=== PATIENT | female | born 1955 | race Caucasian/White ===

== ENCOUNTER 2016-06-29 10:16 | Outpatient (CLI) | payer MEDICAID ==
[~2016-06-29] VITALS: Ht 152.4 cm; Wt 90.7 kg
[~2016-06-29 10:16] MED LIST: ALPR.5T PO; CPR500T; FURO20TA4; HYDR-757 PO; IBP600T1; LOSA25TA15; MECL-124 PO; MECL25TA56; NITR-65 PO
[2016-06-29] MEDS ORDERED: TRIAMCINOLONE ACET (KENALOG-40) 40 MG/ML 1 ML VIAL ONE (10:17)
[2016-06-29] MEDS ORDERED: BUPIVACAINE 0.25% 30 ML (SENSORCAINE) VIAL ONE (10:17)
[2016-06-29 10:31] VITALS: BP 124/99
[2016-06-29 10:55] VITALS: BP 147/97
--- NOTE | 2016-06-29 12:45 | Pain Medicine-Procedure ---
Procedure Pre-Op/Post-Op Diagnosis Diagnosis: disc disorder with radiculopathy, lumbar Indications for Operation Low back pain Attending Surgeon Jamila Procedure Date of Service: Jun 29, 2016 PROCEDURE: Caudal Epidural Steroid Injection with catheter under Flouroscopic Guidance PROCEDURE NOTE: After obtaining written informed consent patient was taken to the procedure room. Vital signs were monitored through out the procedure. A time out was performed. The patient was placed in the prone position on fluoroscopy table. The lower back above the caudal space was prepped with chloraprep and draped in the usual sterile fashion. The skin over the sacral hiatus was identified under fluoroscopic guidance and infiltrated with 1% lidocaine for local anesthesia via 25 gauge needle. An 17-gauge epimed needle was used to access the epidural space under fluoroscopic guidance and was then advanced into the epidural space under fluoroscopic guidance in the AP view. The epimed catheter was then advanced under flourospopic guidance to the L5-S1 interspace. There was no paresthesia with catheter placement. After negative aspiration 1 cc of the contrast dye was injected through the needle with good spread of the medication in the epidural space at the appropriate levels. Again, after negative aspiration, 80 mg of kenalog with 2 cc of 0.25% marcaine and 2 mL's of preservative free normal saline was injected. There was no evidence of CSF, paresthesia or heme during the procedure. The catheter and needle were withdrawn as a unit and the tip was noted to be intact upon removal. Skin was cleaned and a sterile dressing was applied. Following the procedure the patient's vital signs were stable. The patient was discharged home after a brief period of observation with no new neuologic deficits. Complications None AMADOR PANIAGUA MD Jun 29, 2016 12:45 pm
== END 2016-06-29 10:56 ==
LOC: CARD 10:16
PROVIDERS: ATTEND Pain Medicine Pain Medicine
DX: M51.16 Intervertebral disc disorders with radiculopathy, lumbar region (principal); G89.4 Chronic pain syndrome; M96.1 Postlaminectomy syndrome, not elsewhere classified; Z79.899 Other long term (current) drug therapy
CPT/HCPCS: 62323

== ENCOUNTER → 2017-01-30 | Outpatient (CLI) | payer MEDICAID ==
--- NOTE | 2017-01-30 11:37 | Diagnostic Imaging Report ---
CLINICAL INDICATION: Patient has had several falls in the past couple of months. Patient has low back pain and right leg pain and bilateral leg weakness. Patient has history of surgery on 08/11/2014. EXAM: MRI of the lumbar spine performed without IV contrast. Sequences include sagittal T2, sagittal T1, sagittal T2 fat-sat, coronal T2 localizer, and axial T2. COMPARISON: MRI of the lumbar spine without IV contrast dated 10/12/2015. FINDINGS: Again seen small left renal cyst. Again seen postop changes to the lower lumbar spine with L3-L5 posterior lumbar fusion hardware with bilateral spanning rods and pedicle screws. There are no intervertebral disc spacers. There is laminectomies at the L3 and L4 levels. There is no paraspinal fluid collection seen. Susceptibility hardware artifact significantly obscures adjacent soft tissue on the sagittal T2 fat-sat. The visualized distal thoracic spinal cord, conus medullaris, and cauda equina nerve roots are unremarkable. The conus medullaris tip is seen at the L1-L2 intervertebral level. There are degenerative spurs involving the lumbar spine. The lumbar vertebra show no significant abnormal signal. T12-L1: There is interval development of a small left paracentral disc bulge. There is no significant central spinal canal or neural foramen narrowing. L1-L2: There is mild diffuse disc bulge with slight decreased size of the previously seen subtle posterior disc bulge. There is no significant central spinal canal or neural foramen narrowing. L2-L3: There is bilateral facet arthropathy. There is mild diffuse disc bulge with subtle posterior disc bulge seen. There is no significant central spinal canal narrowing. There is stable mild bilateral neural foramen narrowing. L3-L4: Stable mild diffuse disc bulge and bilateral facet arthropathy. There is no significant central canal narrowing. There is stable mild right neural foramen narrowing and mild to moderate left neural foramen narrowing. L4-L5: Stable grade 1 anterolisthesis of L4 on L5. There is no significant change to the diffuse disc bulge with slight uncovering of the posterior aspect of the disc. Stable mild loss of intervertebral disc height. There is decompression of the thecal sac posteriorly with no significant central canal narrowing. Stable mild right neural foramen narrowing and mild to moderate left neural foramen narrowing. L5-S1: There is stable moderate right facet arthropathy and mild left facet arthropathy. There is no significant central spinal canal or neural foramen narrowing. IMPRESSION: 1: There is stable postop changes to the lower lumbar spine with L3-L5 posterior lumbar fusion hardware and laminectomies. There is no fluid collection or MR evidence of significant abnormality. 2: Stable multilevel lumbar spine degenerative disease, as described above. 3: Stable grade 1 anterolisthesis of L4 on L5. Dictated by: Dictated on workstation # [id number]
== END ==
LOC: RAD 08:31
PROVIDERS: ATTEND Nurse Practitioner Community Health
DX: M54.16 Radiculopathy, lumbar region (principal)
CPT/HCPCS: 72148

== ENCOUNTER → 2017-04-29 | Outpatient (CLI) | payer MEDICAID ==
--- NOTE | 2017-04-29 10:01 | Diagnostic Imaging Report ---
PROCEDURE: CT lumbar spine without contrast. TECHNIQUE: Multiple contiguous axial images were obtained through the lumbar spine without the use of intravenous contrast. Sagittal and coronal reformations were then performed. INDICATION: Back pain. FINDINGS: There is grade 1 spondylolisthesis of L4 over L5. There is posterior fusion hardware with transpedicular screws and connecting rods seen involving L3, L4 and L5 levels bilaterally which appear intact. There is lucency seen around the transpedicular screws at L5 level more prominent on the right side which may relate to loosening. No suggestion of screws displacement or retraction however. The vertebral body heights are preserved. There is suggestion of facet joint osseous fusion on the right side at L3/4 level. The left L3/4 demonstrate no osseous fusion. There is no osseous bridging of the posterior elements of L4 and L5 identified. There is laminectomy change at L3 and L4 levels. There is moderate facet arthropathy at L5/S1 more prominent on the right side. No definite CT evidence of significant spinal canal stenosis. IMPRESSION: 1. Grade 1 spondylolisthesis of L4 over L5. 2. There is lucency around the transpedicular screws in L5 level suggestive of mild loosening without evidence of screws displacement or fracture however. 3. There is osseous fusion involving the right facet joint at L3/4 level. Dictated by: Dictated on workstation # [id number]
== END ==
LOC: RAD 08:53
PROVIDERS: ATTEND Neurological Surgery
DX: M43.16 Spondylolisthesis, lumbar region (principal); Z98.1 Arthrodesis status
CPT/HCPCS: 72131

== ENCOUNTER → 2018-12-31 | Outpatient (CLI) | payer MEDICAID ==
--- NOTE | 2018-12-31 15:28 | Diagnostic Imaging Report ---
PROCEDURE: MRI lumbar spine. TECHNIQUE: Multiplanar, multisequence MRI of the lumbar spine was performed without contrast. INDICATION: Chronic low back pain. Patient has history of prior lumbar spine surgery. COMPARISON: Correlation is made with prior MRI of the lumbar spine from 01/30/2017. FINDINGS: Curvature of the lumbar spine is normal. There is anterolisthesis of L4 on L5. Degree of anterolisthesis has increased slightly since the prior MRI. Patient is status post posterior instrumented fusion with stabilization rods and pedicle screws transfixing the L3-L4 level. L5 pedicle screws have been removed since prior MRI. Patient has undergone anterior lumbar interbody fusion at L4-L5 since prior exam. The vertebral body heights are maintained. No acute compression fracture is seen. There is degenerative disc disease at L4-L5. Conus is unremarkable at the L1 level. T12-L1: There is a mild wide-based left paramidline disc bulge indenting the ventral thecal sac at this level. No resultant central canal or neural foraminal stenosis is identified. L1-L2: There is mild broad-based bulging. Central canal is widely patent. Neural foramina are patent. L2-L3: There is mild broad-based disc/osteophyte complex. Central canal is patent. There is significant right and [id number] left neural foraminal stenosis as well as bilateral lateral recess stenosis. L3-L4: Central canal is widely patent. There is mild left neural foraminal narrowing. Right neural foramen is patent. L4-L5: Central canal is patent. There is significant bilateral neural foraminal stenosis likely owing to spondylolisthesis. L5-S1: Hypertrophic facet changes are noted. Central canal is patent. Neural foramina are widely patent. Paraspinous tissues are unremarkable. IMPRESSION: Postop changes of posterior instrumented fusion at the L3-L4 level as well as anterior lumbar interbody fusion at L4-L5. There is spondylolisthesis of L4 on L5 which has increased since prior MRI from January 2017. Lateral recess and neural foraminal narrowing is seen, described level by level above. No significant central canal stenosis is seen. No acute compression fracture is detected. Dictated by: Dictated on workstation # [id number]
== END ==
LOC: RAD 14:10
PROVIDERS: ATTEND Nurse Practitioner Community Health
DX: M43.16 Spondylolisthesis, lumbar region (principal); M54.16 Radiculopathy, lumbar region; M48.061 Spinal stenosis, lumbar region without neurogenic claudication; M89.38 Hypertrophy of bone, other site; M51.24 Other intervertebral disc displacement, thoracic region; M51.26 Other intervertebral disc displacement, lumbar region
CPT/HCPCS: 72148

== ENCOUNTER → 2019-04-08 | Outpatient (CLI) | payer MEDICAID ==
--- NOTE | 2019-04-08 16:36 | Diagnostic Imaging Report ---
PROCEDURE: CT lumbar spine without contrast. TECHNIQUE: Multiple contiguous axial images were obtained through the lumbar spine without the use of intravenous contrast. Sagittal and coronal reformations were then performed. Auto Exposure Controls were utilized during the CT exam to meet ALARA standards for radiation dose reduction. INDICATION: Back pain and surgery. COMPARISON: Exam compared to 04/29/2017. FINDINGS: Since the prior CT, anterior and interbody fusion at L4-L5 has been performed as well as posterior fusion at the L3 and L4 levels with vertical rods and bi-pedicular screws. There does appear to be at least some incorporation of the endplates with the interbody device at the L5-S1 level, however anterolisthesis of L4 on L5 has increased, now measuring 1 cm, previously 5 mm. No suspicious lucencies adjacent to the hardware. There are L3 and L4 laminectomies performed. Remaining levels are aligned normally. No fluid collection. No paravertebral mass or hemorrhage. The aorta is nonaneurysmal. At the T12-L1, L1-L2, L2-L3, and L3-L4 levels, there is no substantial canal or foraminal stenosis. There is facet fusion at the L3-L4 and L4-L5 levels. At L4-L5, the listhesis largely contributes to the moderate degrees of biforaminal stenosis with no substantial canal narrowing. At L5-S1, no canal, foraminal, or recess stenosis. IMPRESSION: No findings of pseudoarthrosis, however increased grade 1 anterolisthesis of L4 on L5. No substantial canal stenosis, however biforaminal narrowing at the malaligned L4-L5 level is present. Dictated by: Dictated on workstation # [id number]
== END ==
LOC: RAD 11:42
PROVIDERS: ATTEND Neurological Surgery
DX: M43.16 Spondylolisthesis, lumbar region (principal); M48.061 Spinal stenosis, lumbar region without neurogenic claudication; Z91.81 History of falling; Z96.9 Presence of functional implant, unspecified
CPT/HCPCS: 72131

== ENCOUNTER 2020-12-28 06:09 | Outpatient (CLI) | payer MEDICAID ==
[~2020-12-28] VITALS: Ht 152.4 cm; Wt 109.1 kg
[2020-12-28] MEDS ORDERED: CETI10TA17 PO (13:16)
[2020-12-28] MEDS ORDERED: POTA10CA43 PO (13:16)
[2020-12-28] MEDS ORDERED: DICY10CA12 PO (13:16)
[2020-12-28] MEDS ORDERED: IBUP-1780 PO (13:16)
[2020-12-28] MEDS ORDERED: LIDO700A45 TP (13:16)
[2020-12-28] MEDS ORDERED: ESTR42.511 VG (13:16)
[2020-12-28] MEDS ORDERED: FAMO40TA72 PO (13:16)
[2020-12-28] MEDS ORDERED: RPN.25T PO (13:16)
[2020-12-28] MEDS ORDERED: CHOL100048 PO (13:16)
[2020-12-28] MEDS ORDERED: FERR-84 PO (13:16)
[2020-12-28] MEDS ORDERED: CYCL10TA9 PO (13:16)
[2020-12-28] MEDS ORDERED: ALBU1.25 INH (13:16)
[2020-12-28] MEDS ORDERED: CARV6.252 PO (13:16)
[2020-12-28] MEDS ORDERED: FURO-124 PO (13:16)
[2020-12-28] MEDS ORDERED: GABA800T10 PO (13:16)
[2020-12-28] MEDS ORDERED: FLUT9.9S NS (13:16)
[2020-12-28] MEDS ORDERED: DEXL60CA PO (13:16)
[2020-12-28] MEDS ORDERED: DICL20GE TP (13:16)
== END 2020-12-28 16:25 | disposition home or self-care (01) ==
LOC: PREOP 06:09
PROVIDERS: ATTEND Orthopaedic Surgery
DX: Z01.818 Encounter for other preprocedural examination (principal)

== ENCOUNTER 2021-01-04 07:51 | Day surgery (SDC) | payer MEDICAID ==
--- NOTE | 2020-12-27 20:05 | HISTORY AND PHYSICAL ---
DATE OF SERVICE: ADMISSION HISTORY AND PHYSICAL This will be for outpatient surgery on 01/04/2021 for left shoulder arthroscopy with rotator cuff repair. HISTORY OF PRESENT ILLNESS: The patient is a 65-year-old female with progressively worsening left shoulder pain and stiffness. She underwent treatment with therapy without relief. She reports that the pain started in late fall of last year. She reports pain on the top of the shoulder and laterally. She denies neck pain and denies paresthesias. She underwent an MRI, which reveals a near full thickness supraspinatus tear. Due to functional impairment and failure to improve with extensive conservative measures, the patient elected to proceed with surgical intervention. REVIEW OF SYSTEMS: No recent chest pain, shortness of breath or dysuria. PAST MEDICAL HISTORY: Chest pain, allergic rhinitis, anxiety disorder, back pain, hypertension, osteoarthritis, fibromyalgia, irregular heartbeat, COPD, scoliosis. PAST SURGICAL HISTORY: Hysterectomy, detached retina, cholecystectomy, lumbar surgery x3. FAMILY HISTORY: Significant for prostate cancer, kidney cancer. PRIMARY CARE PROVIDER: [facility]. MEDICATIONS: 1. Cyclobenzaprine. 2. Diclofenac. 3. Gabapentin. 4. Ibuprofen. 5. Trospium. 6. Sudogest. 7. Potassium. 8. Montelukast. 9. Iron. 10. Albuterol. 11. Furosemide. 12. Fluconazole. 13. Pepcid. 14. Dicyclomine. 15. Dexilant. 16. Zyrtec. 17. Carvedilol. 18. Nitrostat. 19. Epinephrine. 20. Estradiol. ALLERGIES: METHYLPREDNISOLONE, FLAGYL, DILAUDID, AMITRIPTYLINE, TRAZODONE, TRIAMCINOLONE, CLONIDINE, DULOXETINE and LEVAQUIN. SOCIAL HISTORY: The patient is a former smoker. Denies alcohol use. PHYSICAL EXAMINATION: GENERAL: The patient is well-developed, well-nourished, in no acute distress. HEENT: Normocephalic, atraumatic. Pupils are equal, round and reactive to light. Oropharynx is clear. NECK: Supple, no lymphadenopathy. LUNGS: Clear to auscultation bilaterally. HEART: Regular rate and rhythm. ABDOMEN: Soft, nontender, nondistended. EXTREMITIES: The left shoulder demonstrates no atrophy. She has active forward elevation for 140 degrees, external rotation lacks 20 degrees, internal rotation lacks four interspaces actively, passively is full. She has weakness with abduction and external rotation with positive Neer's and positive Hawkin sign. IMPRESSION: Left shoulder rotator cuff tear. PLAN: Left shoulder arthroscopy, possible biceps tenotomy, open rotator cuff repair. The risks, benefits, options, ramifications and recovery were discussed at length with the patient. She understands and wishes to proceed. This will be for outpatient surgery on 01/04/2021. Job ID: [id number] DocumentID: [id number] Dictated Date: 12/26/2020 16:34:37 Industrial Garage Servicer Date: 12/26/2020 17:25:52 Dictated By: DAWIT SANCHEZ MD
[~2021-01-04] VITALS: Ht 152.4 cm; Wt 109.1 kg
[2021-01-04] VITALS (10 sets, daily range): BP systolic 126–164; BP diastolic 68–103
[~2021-01-04 07:51] MED LIST changes: +ALBU1.25 INH; +CARV6.252 PO; +CETI10TA17 PO; +CHOL100048 PO; +CYCL10TA9 PO; +DEXL60CA PO; +DICL20GE TP; +DICY10CA12 PO; +ESTR42.511 VG; +FAMO40TA72 PO; +FERR-84 PO; +FLUT9.9S NS; +FURO-124 PO; +GABA800T10 PO; +IBUP-1780 PO; +LIDO700A45 TP; +POTA10CA43 PO; +RPN.25T PO; +oxyCODONE/APAP 5/325MG (PERCOCET 5) TABLET PO PRN
[2021-01-04] MEDS ORDERED: ceFAZolin INJECTION 1,000 MG in WATER (STERILE) FOR INJECTION 10 ML IV ONE (08:15)
--- NOTE | 2021-01-04 08:19 | Progress Note-Pre Operative ---
Pre-Operative Progress Note H&P Reviewed The H&P was reviewed, patient examined and no changes noted. Date Seen by Provider: Jan 04, 2021 Time Seen by Provider: 08:18 Date H&P Reviewed: Jan 04, 2021 Time H&P Reviewed: 07:11 Pre-Operative Diagnosis: right SLAP and rotator cuff tears DAWIT SANCHEZ MD Jan 04, 2021 08:19
--- NOTE | 2021-01-04 08:21 | Progress Note-Post Operative ---
Post-Operative Progess Note Surgeon (s)/Bread And Pastry Baker (s) Surgeon DAWIT SANCHEZ MD Bread And Pastry Baker: Zachary Marin Pre-Operative Diagnosis right SLAP and rotator cuff tears Post-Operative Diagnosis right SLAP and rotator cuff tears Procedure & Operative Findings Date of Procedure 01/04/21 Procedure Performed/Findings right shoulder arthroscopic biceps tenotomy, acromioplasty and open rotator cuff repair Anesthesia Type GETA Estimated Blood Loss Estimated blood loss (mL): minimal Specimens/Packing Specimens Removed none Packing: none DAWIT SANCHEZ MD Jan 04, 2021 08:21
[2021-01-04] MEDS: LACTATED RINGERS 1,000 ML IV PRN ×2 (08:39→10:23)
[2021-01-04] MEDS ORDERED: ONDANSETRON 4 MG/2 ML (SDV) Z0FRAN IV ONE (08:45)
[2021-01-04] MEDS ORDERED: SCOPOLAMINE 1.5 MG (TRANSDERM-SCOP) PATCH TOP ONE (08:45)
[2021-01-04] MEDS ORDERED: LACTATED RINGERS 1,000 ML IV PRN (08:45)
[2021-01-04] MEDS ORDERED: FAMOTIDINE 20MG/2ML IV (PEPCID) IV ONE (08:45)
[2021-01-04] MEDS ORDERED: SCOPOLAMINE 1.5 MG (TRANSDERM-SCOP) PATCH ONE (08:51)
[2021-01-04] MEDS ORDERED: FAMOTIDINE 20MG/2ML IV (PEPCID) ONE (08:51)
[2021-01-04] MEDS ORDERED: ONDANSETRON 4 MG/2 ML (SDV) Z0FRAN ONE ×2 (08:51→10:13)
[2021-01-04] MEDS ORDERED: MIDAZOLAM 2 MG/2 ML (VERSED) VIAL ONE (08:53)
--- NOTE | 2021-01-04 09:41 | Anesthesia-Procedure Note ---
Procedures/Interventions Procedure Start/Stop/Diagnosis Date of Procedure: Jan 04, 2021 Start Time: 08:40 Stop Time: 09:00 Additional Procedures Procedures isb done with nerve stimulator x 1 attempt. MARGARET Cervantes CRNA Jan 04, 2021 09:41
[2021-01-04] MEDS ORDERED: BUPIVACAINE 0.25% 30 ML (SENSORCAINE) VIAL ONE (10:04)
[2021-01-04] MEDS ORDERED: morphine PF (DURAMORPH) 10 MG/10 ML AMP ONE (10:04)
[2021-01-04] MEDS ORDERED: proPOfol 200 MG/20 ML (DIPRIVAN) VIAL IV ONE (10:13)
[2021-01-04] MEDS ORDERED: LIDOCAINE PF 2% 5 ML (XYLOCAINE) VIAL ONE (10:13)
[2021-01-04] MEDS ORDERED: fentaNYL INJ 100 MCG/2 ML AMP ONE (10:13)
[2021-01-04] MEDS ORDERED: ROCURONIUM 10 MG/ML 5 ML SYRINGE IV ONE (10:13)
[2021-01-04] MEDS ORDERED: ROPIVACAINE 5MG/ML 30ML VIAL ONE (10:13)
[2021-01-04] MEDS ORDERED: SEVOFLURANE (ULTANE) 15 ML INHAL SOLN ONE (11:27)
[2021-01-04] MEDS ORDERED: ONDANSETRON 4 MG/2 ML (SDV) Z0FRAN IVP PRN (11:45)
[2021-01-04] MEDS ORDERED: fentaNYL INJ 100 MCG/2 ML AMP IVP ONE (11:45)
[2021-01-04] MEDS ORDERED: NEOSTIGMINE 3 MG/3 ML VIAL ONE (12:10)
[2021-01-04] MEDS ORDERED: GLYCOPYRROLATE 0.2 MG/ML (ROBINUL) 2 ML VIAL ONE (12:10)
--- NOTE | 2021-01-04 13:26 | Anesthesia-General Post-Op ---
General Patient Condition Mental Status/LOC: Same as Preop Cardiovascular: Satisfactory Nausea/Vomiting: Absent Respiratory: Satisfactory Pain: Controlled Complications: Absent Post Op Complications Complications None Follow Up Care/Instructions Patient Instructions None needed. Anesthesia/Patient Condition Patient Condition Patient is doing well, no complaints, stable vital signs, no apparent adverse anesthesia problems. No complications reported per nursing. MARGY PAULINO CRNA Jan 04, 2021 13:26
--- NOTE | 2021-01-04 15:59 | OPERATIVE REPORT ---
DATE OF SERVICE: 01/04/2021 PREOPERATIVE DIAGNOSES: 1. Left rotator cuff tear. 2. Left SLAP tear. POSTOPERATIVE DIAGNOSES: 1. Left rotator cuff tear. 2. Left SLAP tear. PROCEDURES: 1. Left shoulder open rotator cuff repair. 2. Left shoulder arthroscopic biceps tenotomy. 3. Left shoulder arthroscopic acromioplasty. SURGEON: Mark Adkins MD MANAGER OF MAINTENANCE: Zachary Marin, who assisted throughout the procedure and closed the incisions. ANESTHESIA: General endotracheal plus interscalene nerve block by Valeriano Isaac CRNA. ESTIMATED BLOOD LOSS: Minimal. DRAINS: None. COMPLICATIONS: None. POSTOPERATIVE PLAN: Passive range of motion. Sling wear for 4 weeks. The patient was transferred to the recovery room awake and in stable condition. STATEMENT OF MEDICAL NECESSITY: Examination under anesthesia revealed forward elevation of 170 degrees, external rotation of 80 degrees, internal rotation of 60 degrees. Arthroscopic findings demonstrated a 1 x 1 cm supraspinatus tear at the mid portion of the insertion site. She had grade IV chondral loss of the central portion of the humeral head in a 15 x 15 area. The glenoid demonstrated grade III chondral loss without any flaps and central portion of the glenoid. The labrum demonstrated a type 2 SLAP tear. The remaining labrum was intact. Subacromial space demonstrated moderate bursitis with slope in the anterolateral acromion. DESCRIPTION OF PROCEDURE: After risks and benefits of procedure were discussed and questions were answered, informed consent was signed and placed on chart, the operative site was confirmed in the preoperative holding area initialed by the surgeon. The patient was then transferred to the operating room and after adequate levels of general endotracheal anesthetic were obtained, a timeout was called, confirming the operative site. Examination under anesthesia was performed with above findings noted. The left shoulder and upper extremity were prepped and draped in the usual sterile fashion. Shoulder joint was injected with 20 mL fluid and standard posterior portal was placed under direct visualization. Anterior portal was created in the interval between biceps, subscapularis and glenoid. The biceps anchor was released, the stump was debrided with a shaver. The scope was redirected into the subacromial space. Lateral portal was created. Bursectomy was performed and the acromion was planed to a flat type 1 acromion. The lateral portal was then extended. The deltoid was split in line with its fibers leaving attached to the acromion for later reapproximation. The rotator cuff was then repaired with modified Suleiman-Jeff repair with a single corkscrew anchor. Excellent repair was obtained with no undue tension with the arm at the side. The wound was copiously irrigated. The deltoid was repaired in ajcr-[id number] fashion using #2 FiberWire in [id number] interrupted fashion. The wound was further irrigated. The subcutaneous tissue was closed with 3-0 Vicryl in simple interrupted fashion. The portal sites were closed with 4-0 nylon in simple interrupted fashion and the incision was closed with 4-0 nylon running alternating horizontal mattress fashion. Shoulder joint was injected with Duramorph. The incisions were infiltrated with plain Marcaine. A soft dressing and sling were applied. The patient was transferred to the recovery room awake and in stable condition. Job ID: [id number] DocumentID: [id number] Dictated Date: 01/04/2021 11:26:25 Dress Cap Maker Date: 01/04/2021 15:58:20 Dictated By: MARK ADKINS MD
== END 2021-01-04 13:40 | disposition home or self-care (01) ==
LOC: SDC 07:51
PROVIDERS: ATTEND Orthopaedic Surgery
DX: M75.102 Unspecified rotator cuff tear or rupture of left shoulder, not specified as traumatic (principal); S43.432A Superior glenoid labrum lesion of left shoulder, initial encounter; M94.8X1 Other specified disorders of cartilage, shoulder; J30.9 Allergic rhinitis, unspecified; I10 Essential (primary) hypertension; M19.90 Unspecified osteoarthritis, unspecified site; M79.7 Fibromyalgia; J44.9 Chronic obstructive pulmonary disease, unspecified; M41.9 Scoliosis, unspecified; K21.9 Gastro-esophageal reflux disease without esophagitis; F41.9 Anxiety disorder, unspecified; Z90.710 Acquired absence of both cervix and uterus; Z90.49 Acquired absence of other specified parts of digestive tract; Z79.899 Other long term (current) drug therapy; Z87.891 Personal history of nicotine dependence; Z80.42 Family history of malignant neoplasm of prostate; Z80.51 Family history of malignant neoplasm of kidney
CPT/HCPCS: 87081

== ENCOUNTER 2021-05-24 05:33 | Outpatient (CLI) | payer MEDICAID ==
[~2021-05-24] VITALS: Ht 152.4 cm; Wt 106.0 kg
[~2021-05-24 05:33] MED LIST changes: +CYCL10TA25 PO; -CYCL10TA9 PO; -oxyCODONE/APAP 5/325MG (PERCOCET 5) TABLET PO PRN
[2021-05-24] MEDS ORDERED: PSEU60TA87 PO ×2 (15:07)
[2021-05-24] MEDS ORDERED: ROPI0.5T4 PO ×2 (15:07)
[2021-05-24] MEDS ORDERED: IPRA4AER IH ×2 (15:07)
[2021-05-24] MEDS ORDERED: TROS60CA PO ×2 (15:07)
[2021-05-24] MEDS ORDERED: ALBU0.63 IH ×2 (15:07)
[2021-05-24] MEDS ORDERED: NITR0.4T39 SL ×2 (15:07)
[2021-05-24] MEDS ORDERED: ESOM40CA52 PO ×2 (15:07)
[2021-05-24] MEDS ORDERED: OXYC1TAB11 PO ×2 (15:07)
== END 2021-05-24 15:37 | disposition home or self-care (01) ==
LOC: PREOP 05:33
PROVIDERS: ATTEND Orthopaedic Surgery
DX: Z01.818 Encounter for other preprocedural examination (principal)

== ENCOUNTER 2021-05-31 08:52 | Day surgery (SDC) | payer MEDICAID ==
--- NOTE | 2021-05-23 19:02 | HISTORY AND PHYSICAL ---
DATE OF SERVICE: 05/31/2021 ADMISSION HISTORY AND PHYSICAL DATE OF ADMISSION: 05/31/2021. This will be for an outpatient surgery on 05/31/2021 for left knee arthroscopy. HISTORY OF PRESENT ILLNESS: The patient is a 65-year-old female with progressively worsening left medial knee pain. She underwent treatment with injections, which provided temporarily relief, but she reports persistent symptoms. Radiographs reveal moderate osteoarthritis of her medial compartment. The patient does not desire total knee arthroplasty. She understands that an arthroscopy can help with her catching and locking symptoms, but will not alleviate her arthritic type symptoms. Due to functional impairment and failure to improve with the conservative measures, the patient elected to proceed with surgical intervention. REVIEW OF SYSTEMS: No chest pain, no shortness of breath, and no dysuria. PAST MEDICAL HISTORY: Allergic rhinitis, anxiety disorder, back pain, hypertension, osteoarthritis, chronic pain, fibromyalgia, hiatal hernia, arrhythmia, scoliosis, and COPD. PAST SURGICAL HISTORY: Hysterectomy, detached retina, cholecystectomy, lumbar surgery x3 with fusion at L3-4, and left shoulder rotator cuff repair. FAMILY HISTORY: Significant for prostate cancer, bladder cancer, and kidney cancer. SOCIAL HISTORY: The patient is a former smoker. Denies alcohol use. MEDICATIONS: Flagyl, Dilaudid, amitriptyline, trazodone, triamcinolone, clonidine, and duloxetine. PHYSICAL EXAMINATION: GENERAL: The patient is well-developed, well-nourished, and in no acute distress. HEENT: Normocephalic, atraumatic. Pupils are equal, round, and reactive to light. Oropharynx is clear. NECK: Supple, with no lymphadenopathy. LUNGS: Clear to auscultation bilaterally. HEART: Regular rate and rhythm. ABDOMEN: Soft, nontender, and nondistended. EXTREMITIES: The left knee demonstrates tenderness along the medial joint line. She has pain medially with Adrián's. She has slight effusion. Range of motion is 0/0/135. She is ligamentously stable in all planes. She has mild crepitus in the patellofemoral joint with the patellar loading. 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 PLAN: Left knee arthroscopy, partial medial meniscectomy, and chondroplasty. The risks, benefits, options, ramifications, and recovery have been discussed at length with the patient. She understands and wishes to proceed. Job ID: [id number] DocumentID: [id number] Dictated Date: 05/11/2021 15:01:09 Utilization Management Manager Date: 05/11/2021 15:36:27 Dictated By: DAWIT SANCHEZ MD
[2021-05-31] VITALS (10 sets, daily range): BP systolic 170–207; BP diastolic 85–109
[~2021-05-31] VITALS: Ht 152.4 cm; Wt 106.0 kg
[~2021-05-31 08:52] MED LIST changes: +ALBU0.63 IH; +ESOM40CA52 PO; +HYDROcodone/APAP 7.5 MG/325 MG (LORTAB, LORCET PLUS) TABLET PO PRN; +IPRA4AER IH; +NITR0.4T39 SL; +OXYC1TAB11 PO; +PSEU60TA87 PO; +ROPI0.5T4 PO; +TROS60CA PO
[2021-05-31] MEDS ORDERED: ceFAZolin INJECTION 1,000 MG VIAL IV ONE (09:00)
--- NOTE | 2021-05-31 09:20 | Progress Note-Pre Operative ---
Pre-Operative Progress Note H&P Reviewed The H&P was reviewed, patient examined and no changes noted. Date Seen by Provider: May 31, 2021 Time Seen by Provider: 09:10 Date H&P Reviewed: May 31, 2021 Time H&P Reviewed: 07:11 Pre-Operative Diagnosis: left knee medial meniscus tear and chondromalacia DAWIT SANCHEZ MD May 31, 2021 09:20
--- NOTE | 2021-05-31 09:21 | Progress Note-Post Operative ---
Post-Operative Progess Note Surgeon (s)/Buckle Attaching Machine Operator (s) Surgeon DAWIT SANCHEZ MD Buckle Attaching Machine Operator: Zachary Marin Pre-Operative Diagnosis left knee medial meniscus tear and chondromalacia Post-Operative Diagnosis left knee medial meniscus tear and chondromalacia of the medial femoral condyle and patella Procedure & Operative Findings Date of Procedure 05/31/21 Procedure Performed/Findings left knee arthroscopic partial medial meniscectomy and chondroplasty of medial femoral condyle and patella Anesthesia Type GETA Estimated Blood Loss Estimated blood loss (mL): minimal Specimens/Packing Specimens Removed none Packing: none DAWIT SANCHEZ MD May 31, 2021 09:21
[2021-05-31] MEDS: LACTATED RINGERS 1,000 ML IV PRN ×2 (09:34→11:53)
[2021-05-31] MEDS ORDERED: BUPIVACAINE 0.25% 30 ML (SENSORCAINE) VIAL ONE (10:00)
[2021-05-31] MEDS ORDERED: morphine PF (DURAMORPH) 10 MG/10 ML AMP ONE (10:00)
[2021-05-31] MEDS ORDERED: MIDAZOLAM 2 MG/2 ML (VERSED) VIAL ONE (11:05)
[2021-05-31] MEDS ORDERED: fentaNYL INJ 100 MCG/2 ML AMP ONE (11:05)
[2021-05-31] MEDS ORDERED: LIDOCAINE PF 2% 5 ML (XYLOCAINE) VIAL ONE (11:28)
[2021-05-31] MEDS ORDERED: proPOfol 200 MG/20 ML (DIPRIVAN) VIAL IV ONE (11:28)
[2021-05-31] MEDS ORDERED: SEVOFLURANE (ULTANE) 15 ML INHAL SOLN ONE (11:28)
[2021-05-31] MEDS ORDERED: ONDANSETRON 4 MG/2 ML (SDV) Z0FRAN ONE (11:28)
--- NOTE | 2021-05-31 14:05 | Physical Therapy Ortho Eval ---
PT Orthopedic Evaluation Type of Surgery Knee Scope Prior Level of Function Current Living Status: Spouse Locomotion (Upon Admit): Independent Established Durable Medical Eq: Front Wheeled Walker Subjective Entry Into Home: Level Entry Steps Inside Home: 15 Steps Accessories: No Railing Other Obstacles: Reports she can stay on one level and does not have to use stairs. Motor Control Motor Control: Motor Control WNL ROM ROM: WFL, except focal deficit Strength Strength: Gen Weak,No Focal Deficit Transfer SCALE: Activities may be completed with or without assistive devices. 7-Htubwfyrec-wbpmkan completes the activity by him/herself with no assistance from a helper. 5-Set-up or Clean-up Assistance-helper sets up or cleans up; patient completes activity. [place] assists only prior to or following the activity. 4-Supervision or Touching Assistance-helper provides verbal cues and/or touching/steadying and/or contact guard assistance as patient completes activity. Assistance may be provided throughout the activity or intermittently. 3-Partial/Moderate Assistance-helper does LESS THAN HALF the effort. [place] lifts, holds or supports trunk or limbs, but provides less than half the effort. 2-Substantial/Maximal Assistance-helper does MORE THAN HALF the effort. [place] lifts or holds trunk or limbs and provides more than half the effort. 4-Sytrxezws-xxankm does ALL the effort. Patient does none of the effort to complete the activity. Or, the assistance of 2 or more helpers is required for the patient to complete the activity. If activity was not attempted, code reason: 7-Patient Refused. 9-Not Applicable-not attempted and the patient did not perform the activity b efore the current illness, exacerbation or injury. 10-Not Attempted due to Environmental Limitations-(lack of equipment, weather restraints, etc.). 88-Not Attempted due to Medical Conditions or Safety Concerns. Transfers (B, C, W/C) (QC): 4 Gait Gait Assistive Device: FWW Left Lower Extremity: Left Weight Bearing Status LLE: Weight Bearing/Tolerated Gait (QC): 4 Distance (QC): 3=112-59 ft Distance: 80 Gait Level of Assist: 4 Treatment Rendered Treatment: Gait Train, Step Train Assessment/Goals Goal Time Frame: 1 Visit Understands HEP: Yes Safe Ambulation: Yes Plan Treatment Plan: Discharge PT/Family Agrees to Plan: Yes Time Time In: 1307 Time Out: 1324 Total Billed Treatment Time: 17 Billed Treatment Time Visit, LIV Edgar PT May 31, 2021 14:05
--- NOTE | 2021-05-31 14:28 | Anesthesia-General Post-Op ---
General Patient Condition Mental Status/LOC: Same as Preop Cardiovascular: Satisfactory Nausea/Vomiting: Absent Respiratory: Satisfactory Pain: Controlled Complications: Absent Post Op Complications Complications None Follow Up Care/Instructions Patient Instructions None needed. Anesthesia/Patient Condition Patient Condition Patient is doing well, no complaints, stable vital signs, no apparent adverse anesthesia problems. No complications reported per nursing. GISSELLE JUSTICE CRNA May 31, 2021 14:28
--- NOTE | 2021-05-31 16:57 | OPERATIVE REPORT ---
DATE OF SERVICE: 05/31/2021 PREOPERATIVE DIAGNOSES: 1. Left knee medial meniscus tear. 2. Left knee chondromalacia of the patella. POSTOPERATIVE DIAGNOSES: 1. Left knee medial meniscus tear. 2. Left knee chondromalacia of the patella. 3. Left knee chondromalacia of the medial femoral condyle. PROCEDURES: 1. Left knee arthroscopic partial medial meniscectomy. 2. Left knee arthroscopic chondroplasty of the medial femoral condyle. 3. Left knee arthroscopic chondroplasty of the patella. SURGEON: Mark Sanchez MD PLANT SCIENCES PROFESSOR: LENO Contreras, who assisted throughout the procedure and closed the incisions. ANESTHESIA: General endotracheal by Betty Prieto CRNA. TOURNIQUET TIME: Not applicable. ESTIMATED BLOOD LOSS: Minimal. DRAINS: None. COMPLICATIONS: None. POSTOPERATIVE PLAN: Routine arthroscopy protocol. The patient was transferred to the recovery room awake and in stable condition. STATEMENT OF MEDICAL NECESSITY: The patient is a 65-year-old female with complaints of left medial knee pain, catching, locking and swelling. She also had patellofemoral crepitus and pain with patellar loading. She tried rest, activity modifications and injections without relief. Due to functional impairment and failure to improve with conservative measures, the patient elected to proceed with surgical intervention. Examination under anesthesia revealed range of motion of 0/0/130 with negative Syeda, negative anterior and posterior drawer. No varus valgus laxity, negative pivot shift. ARTHROSCOPIC FINDINGS: The patella demonstrated grade II chondral flaps inferiorly in a 10 x 10 area. Trochlea demonstrated grade I chondral softening with no unstable chondral flaps. The medial and lateral gutters were clear. The ACL and PCL were intact. The lateral compartment demonstrated no significant meniscal or chondral pathology. The medial compartment demonstrated a horizontal cleavage tear of the posterior horn of the medial meniscus involving approximately 1/2 posterior horn and grade II to III chondral flaps of the central portion of the femoral condyle in a 15 x 15 area. PROCEDURE IN DETAIL: After risks and benefits of procedure were discussed and questions were answered, informed consent was signed and placed on chart, the operative site was confirmed in the preoperative holding area initialed by the surgeon. The patient was then transferred to the operating room and after adequate levels of general endotracheal anesthetic were obtained, a timeout was called, confirming the operative site and examination under anesthesia was performed with above findings noted. The left lower extremity was prepped and draped in the usual sterile fashion. The knee joint was injected with 60 mL fluid and standard inferolateral portal was placed for the arthroscope under direct visualization, inferior medial portal was created. The menisci and cruciates carefully probed with the above findings noted. The unstable chondral flaps on the patella were debrided with a shaver back to a stable edge. The scope was redirected into the medial compartment where the unstable chondral flaps on the medial femoral condyle were debrided with shaver back to a stable edge and the posterior horn of the medial meniscus was debrided with a shaver and biter back to a stable edge. This was carefully probed with no further tearing or instability noted. The knee was copiously irrigated and the portal sites were closed with 4-0 nylon in simple interrupted fashion. Knee was injected with Duramorph. The portal sites were infiltrated with plain Marcaine. A soft dressing was applied. The patient was transferred to the recovery room awake and in stable condition. Job ID: [id number] DocumentID: [id number] Dictated Date: 05/31/2021 11:35:32 Field Service Specialist Date: 05/31/2021 16:56:08 Dictated By: MARK SANCHEZ MD
== END 2021-05-31 13:50 ==
LOC: SDC 08:52
PROVIDERS: ATTEND Orthopaedic Surgery
DX: S83.242A Other tear of medial meniscus, current injury, left knee, initial encounter (principal); M22.42 Chondromalacia patellae, left knee; K21.9 Gastro-esophageal reflux disease without esophagitis; J44.9 Chronic obstructive pulmonary disease, unspecified; I10 Essential (primary) hypertension; M19.90 Unspecified osteoarthritis, unspecified site; M79.7 Fibromyalgia; F41.9 Anxiety disorder, unspecified; G89.29 Other chronic pain; M41.80 Other forms of scoliosis, site unspecified; J30.9 Allergic rhinitis, unspecified; Z79.899 Other long term (current) drug therapy; Z79.02 Long term (current) use of antithrombotics/antiplatelets; Z98.1 Arthrodesis status; Z98.890 Other specified postprocedural states; Z87.891 Personal history of nicotine dependence; Z79.2 Long term (current) use of antibiotics; Z79.891 Long term (current) use of opiate analgesic
CPT/HCPCS: 87081

== ENCOUNTER → 2022-07-25 | Outpatient (CLI) | payer MEDICAID ==
[~2022-07-25] MED LIST changes: -HYDROcodone/APAP 7.5 MG/325 MG (LORTAB, LORCET PLUS) TABLET PO PRN; -POTA10CA43 PO; +POTA10CA44 PO
== END | disposition home or self-care (01) ==
LOC: PREOP 05:32
PROVIDERS: ATTEND Orthopaedic Surgery
DX: Z01.818 Encounter for other preprocedural examination (principal)

== ENCOUNTER 2022-08-01 05:51 | Day surgery (SDC) | payer MEDICAID ==
--- NOTE | 2022-07-24 16:20 | HISTORY AND PHYSICAL ---
This will be for outpatient surgery on 08/01/2022 for right knee scope. HISTORY OF PRESENT ILLNESS: The patient is a 66-year-old female with longstanding right knee pain. She has known osteoarthritis of her right knee, but does not desire total knee arthroplasty. She complains of mechanical symptoms in her right knee with swelling, popping, catching and locking. Due to functional impairment and failure to improve with conservative measures, the patient elected to proceed with surgical intervention. REVIEW OF SYSTEMS: No chest pain, no shortness of breath, no dysuria. PAST MEDICAL HISTORY: Allergic rhinitis, anxiety disorder, back pain, hypertension, osteoarthritis, fibromyalgia, COPD, scoliosis. PAST SURGICAL HISTORY: Hysterectomy, detached retina, cholecystectomy, lumbar fusion, left shoulder, left knee. FAMILY HISTORY: Significant for prostate cancer, breast cancer, hypertension, diabetes. SOCIAL HISTORY: The patient is a former smoker. Denies alcohol use. ALLERGIES: KENALOG, METHYLPREDNISOLONE, FLAGYL, DILAUDID, AMITRIPTYLINE, TRAZODONE, TRIAMCINOLONE, CLONIDINE, LEVAQUIN, DULOXETINE. PHYSICAL EXAMINATION: GENERAL: The patient is well-developed, well-nourished, in no acute distress. HEENT: Normocephalic, atraumatic. Pupils equal, round, reactive to light. Oropharynx is clear. NECK: Supple. No lymphadenopathy. LUNGS: Clear to auscultation bilaterally. HEART: Regular rate and rhythm. ABDOMEN: Soft, nontender, nondistended. EXTREMITIES: The right knee demonstrates tenderness along her medial joint line. She has pain medially with Adrián's. She has an audible click with Adrián's as well. She has patellofemoral crepitus and pain with patellar loading. She has moderate effusion. Range of motion 0/2/125. IMPRESSION: Right knee chondromalacia with medial meniscus tear. PLAN: Right knee arthroscopy with chondroplasty and partial meniscectomy. The risks, benefits, options, ramifications and recovery were discussed at length with the patient. She understands and wishes to proceed. Job ID: [id number] DocumentID: [id number] Dictated Date: 07/16/2022 09:01:32 Bending Roll Hand Date: 07/16/2022 12:17:00 Dictated By: DAWIT SANCHEZ MD
[~2022-08-01] VITALS: Ht 152.4 cm; Wt 109.1 kg
[2022-08-01] VITALS (10 sets, daily range): BP systolic 102–170; BP diastolic 62–115
[~2022-08-01 05:51] MED LIST changes: +LACTATED RINGERS 1,000 ML IV PRN
[2022-08-01] MEDS ORDERED: ceFAZolin INJECTION 2,000 MG in NS (IVPB) 50 ML IV ONE (06:45)
[2022-08-01] MEDS ORDERED: ONDANSETRON 4 MG/2 ML (SDV) Z0FRAN ONE ×2 (06:58→08:24)
[2022-08-01] MEDS ORDERED: SCOPOLAMINE 1.5 MG (TRANSDERM-SCOP) PATCH ONE (06:58)
[2022-08-01] MEDS ORDERED: FAMOTIDINE 20MG/2ML IV (PEPCID) ONE (06:59)
[2022-08-01] MEDS ORDERED: SCOPOLAMINE 1.5 MG (TRANSDERM-SCOP) PATCH TD ONE (07:00)
[2022-08-01] MEDS ORDERED: FAMOTIDINE 20MG/2ML IV (PEPCID) IVP ONE (07:00)
[2022-08-01] MEDS ORDERED: ONDANSETRON 4 MG/2 ML (SDV) Z0FRAN IVP ONE (07:00)
[2022-08-01] MEDS ORDERED: HYDROcodone/APAP 7.5 MG/325 MG (LORTAB, LORCET PLUS) TABLET PO PRN (07:15)
[2022-08-01] MEDS ORDERED: morphine PF (DURAMORPH) 10 MG/10 ML AMP ONE (07:16)
[2022-08-01] MEDS ORDERED: BUPIVACAINE 0.25% 30 ML (SENSORCAINE) VIAL ONE (07:17)
[2022-08-01] MEDS ORDERED: fentaNYL INJ 100 MCG/2 ML AMP ONE (07:20)
[2022-08-01] MEDS ORDERED: MIDAZOLAM 2 MG/2 ML (VERSED) VIAL ONE (07:20)
[2022-08-01] MEDS ORDERED: ONDANSETRON 4 MG/2 ML (SDV) Z0FRAN IV ONE (07:30)
[2022-08-01] MEDS ORDERED: SCOPOLAMINE 1.5 MG (TRANSDERM-SCOP) PATCH TOP ONE (07:30)
[2022-08-01] MEDS ORDERED: FAMOTIDINE 20MG/2ML IV (PEPCID) IV ONE (07:30)
--- NOTE | 2022-08-01 07:34 | Progress Note-Pre Operative ---
Pre-Operative Progress Note Date of Available H&P: Jul 16, 2022 Date H&P Reviewed: Aug 01, 2022 Time H&P Reviewed: 07:11 Changes from last HP none Pre-Operative Diagnosis: right knee chondromalacia and medial meniscus tear DAWIT SANCHEZ MD Aug 01, 2022 07:34
--- NOTE | 2022-08-01 07:35 | Progress Note-Post Operative ---
Post-Operative Progess Note Surgeon (s)/Drafter Detail (s) Surgeon DAWIT SANCHEZ MD Drafter Detail: Zachary Marin Pre-Operative Diagnosis right knee chondromalacia and medial meniscus tear Post-Operative Diagnosis right knee chondromalacia of the trochlea and patella and medial and lateral meniscus tears Procedure & Operative Findings Date of Procedure 08/01/22 Procedure Performed/Findings right knee arthroscopic partial medial and lateral meniscectomies and chondroplasty of the trochlea and patella Anesthesia Type GETA Estimated Blood Loss Estimated blood loss (mL): minimal Specimens/Packing Specimens Removed none Packing: none DAWIT SANCHEZ MD Aug 01, 2022 07:35
[2022-08-01] MEDS ORDERED: BUPIVACAINE 0.25% 30 ML (SENSORCAINE) VIAL INJ ONE (07:59)
[2022-08-01] MEDS ORDERED: morphine PF (DURAMORPH) 10 MG/10 ML AMP INJ ONE (08:00)
[2022-08-01] MEDS ORDERED: SEVOFLURANE (ULTANE) 15 ML INHAL SOLN ONE (08:24)
[2022-08-01] MEDS ORDERED: proPOfol 200 MG/20 ML (DIPRIVAN) VIAL IV ONE (08:24)
[2022-08-01] MEDS ORDERED: LIDOCAINE PF 2% 5 ML (XYLOCAINE) VIAL ONE (08:24)
--- NOTE | 2022-08-01 09:39 | Anesthesia-General Post-Op ---
General Patient Condition Mental Status/LOC: Same as Preop Cardiovascular: Satisfactory Nausea/Vomiting: Absent Respiratory: Satisfactory Pain: Controlled Complications: Absent Post Op Complications Complications None Follow Up Care/Instructions Patient Instructions None needed. Anesthesia/Patient Condition Patient Condition Patient is doing well, no complaints, stable vital signs, no apparent adverse anesthesia problems. No complications reported per nursing. GISSELLE JUSTICE CRNA Aug 01, 2022 09:39
[2022-08-01] MEDS ORDERED: fentaNYL INJ 100 MCG/2 ML AMP IVP ONE (09:45)
[2022-08-01] MEDS ORDERED: ONDANSETRON 4 MG/2 ML (SDV) Z0FRAN IVP PRN (09:45)
--- NOTE | 2022-08-01 12:22 | OPERATIVE REPORT ---
DATE OF SERVICE: 08/01/2022 PREOPERATIVE DIAGNOSES: 1. Right knee medial meniscus tear. 2. Right knee chondromalacia of medial femoral condyle. 3. Right knee chondromalacia patella. POSTOPERATIVE DIAGNOSES: 1. Right knee medial meniscus tear. 2. Right knee lateral meniscus tear. 3. Right knee chondromalacia trochlea. 4. Right knee chondromalacia patella. PROCEDURES: 1. Right knee arthroscopic partial medial meniscectomy. 2. Right knee arthroscopic partial lateral meniscectomy. 3. Right knee arthroscopic chondroplasty of the patella. 4. Right knee arthroscopic chondroplasty of the trochlea. SURGEON: Mark Sanchez MD BEAMER OPERATOR: Zachary Marin, who assisted throughout the procedure and closed the incisions. ANESTHESIA: General endotracheal by Neyda Almonte CRNA. TOURNIQUET TIME: Not applicable. ESTIMATED BLOOD LOSS: Minimal. DRAINS: None. COMPLICATIONS: None. POSTOPERATIVE PLAN: Routine protocol. The patient was transferred to recovery room awake and stable condition. STATEMENT OF MEDICAL NECESSITY: The patient is a 66-year-old female with known arthrosis of her right knee. She had medial joint space narrowing tenderness along medial joint line. She has patellofemoral crepitus and pain with patellar loading. She tried rest, activity modifications, anti-inflammatories without relief. She understood that an arthroscopy could help with her mechanical symptoms, but would not help with her arthritic type symptoms. Due to functional impairment and failure to improve with conservative measures, the patient elected to proceed with surgical intervention. Examination under anesthesia revealed range of motion of 0/2/130 with negative Syeda, negative anterior and posterior drawer. No varus or valgus laxity, negative pivot shift. Arthroscopic findings, the patella demonstrated grade III chondral flaps inferiorly in 8 x 8 area. The trochlea demonstrated grade III chondral flap superiorly in a 10 x 10 area. The medial and lateral gutters were clear. The lateral compartment demonstrated a degenerative tear of the body of the lateral meniscus involving approximately 20% of the body. No significant chondral pathology was noted. The ACL and PCL were intact. The medial compartment demonstrated grade IV chondral loss on adjacent areas of the tibial plateau and femoral condyle in 20 x 25 areas. In addition, there was a horizontal cleavage tear of the posterior horn and body of the medial meniscus involving approximately one-half of the posterior horn and body. DESCRIPTION OF PROCEDURE: After risks and benefits of the procedure were discussed and questions were answered, informed consent signed and placed on chart. The operative site was confirmed in the preoperative holding initialed by surgeon. The patient was then transferred to the operating room. After adequate levels of general endotracheal anesthetic were obtained, a timeout was called, confirming the operative site. Examination under anesthesia was performed with the above findings noted. The right lower extremity was prepped and draped in the usual sterile fashion. The knee joint was injected with 60 mL fluid and standard inferolateral portal was placed for the arthroscope under direct visualization. Inferior medial portal was created. The menisci cruciates carefully probed with above findings noted. The unstable chondral flaps on the patella and trochlea were debrided with a shaver back to a stable edge. Scope was redirected into the medial compartment [ ] medial meniscus tear was debrided with a shaver and a biter back to a stable edge. This was carefully probed with no further tearing or instability noted. Scope was then redirected in the lateral compartment where the unstable lateral meniscus tears were debrided with a shaver back to a stable edge. The knee was copiously irrigated. The port sites were closed with 4-0 nylon [ ] fashion. Knee was injected with Duramorph. Port sites were infiltrated with plain Marcaine. A soft dressing was applied. The patient was transferred to recovery room awake and stable condition. Job ID: [id number] DocumentID: [id number] Dictated Date: 08/01/2022 08:33:43 Commercial Sales Consultant Date: 08/01/2022 12:20:00 Dictated By: MARK SANCHEZ MD
== END 2022-08-01 10:10 ==
LOC: SDC 05:51
PROVIDERS: ATTEND Orthopaedic Surgery
DX: S83.281A Other tear of lateral meniscus, current injury, right knee, initial encounter (principal); S83.241A Other tear of medial meniscus, current injury, right knee, initial encounter; M94.261 Chondromalacia, right knee; E66.01 Morbid (severe) obesity due to excess calories; Z68.42 Body mass index [BMI] 45.0-49.9, adult; Z87.891 Personal history of nicotine dependence
CPT/HCPCS: 87081